=== PATIENT | female | born 1995 | race Caucasian/White ===

== ENCOUNTER 2020-01-12 06:11 | Emergency (ER) | payer OTHER ==
[~2020-01-12] VITALS: Ht 157.5 cm; Wt 54.4 kg
[2020-01-12 06:13] VITALS: BP 125/67
== END 2020-01-12 07:00 | disposition home or self-care (01) ==
LOC: ER 06:11
DX: S61.412A Laceration without foreign body of left hand, initial encounter (principal); Z91.011 Allergy to milk products; W26.0XXA Contact with knife, initial encounter; Y93.89 Activity, other specified; Y92.89 Other specified places as the place of occurrence of the external cause; Y99.9 Unspecified external cause status